=== PATIENT | female | born 1985 | race Caucasian/White ===

== ENCOUNTER 2019-02-01 12:21 | Emergency (ER) | payer OTHER ==
[~2019-02-01] VITALS: Ht 152.4 cm; Wt 76.2 kg
[2019-02-01 12:26] VITALS: Ht 152.4 cm; Wt 76.2 kg
[2019-02-01 17:18] VITALS: BP 135/62
== END 2019-02-01 17:18 | disposition home or self-care (01) ==
LOC: ED 12:21
DX: R51 Headache (principal)
CPT/HCPCS: J3030; Q0162